=== PATIENT | male | born 1995 | race Caucasian/White ===

== ENCOUNTER 2018-02-05 17:49 | Emergency (ER) | payer OTHER ==
[~2018-02-05] VITALS: Ht 180.3 cm; Wt 78.2 kg
[2018-02-05 18:17] VITALS: Ht 180.3 cm; Wt 78.2 kg
[2018-02-05] MEDS ORDERED: KETOROLAC TROMETHAMINE 30 MG/ML VIAL IV STA (18:27)
[2018-02-05] MEDS ORDERED: DEXAMETHASONE INJ 10 MG in SYRINGE 0 ML IV STA (18:36)
--- NOTE | 2018-02-05 18:42 | EMERGENCY ROOM VISIT NOTE ---
History Report prepared by eJannette: Mina Bowie Under the Supervision of: Dr. Rupert Mae M.D. First contact with patient: 18:21 Chief Complaint: THROAT PAIN/INJURY Stated Complaint: TONSIL ABSCESS History of Present Illness The patient is a 22 year old male who presents to the Emergency Room after seeing [facility] with complaints of difficulty swallowing that he began to experience Octaviano, 6 days ago. The patient states the [facility] diagnosed him with a peritonsillar abscess. They did not do any imaging or administer any medications. His pain is worsened with eating. He does not complain of any breathing difficulties at this time. 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 A total of 10 systems reviewed and were otherwise negative. Past Medical & Surgical No pertinent history stated. Family History Patient reports no known family medical history. Social History Smoking Status: Never Smoker Drug Use: none Marital Status: single Housing Status: lives with roommate Occupation Status: employed, [employer] student Current/Historical Medications Scheduled Amoxicillin & Pot Clavulanate (Augmentin 875-125 mg), 1 TAB PO BID Prednisone (Prednisone Tab), 0 PO DAILY Scheduled PRN Ibuprofen Tab (Advil), 200 MG PO TID PRN for Pain or Fever Naproxen (Aleve), 220 MG PO BID PRN for Pain or Fever Allergies Coded Allergies: No Known Allergies (Unverified , 02/05/18) Physical Exam Vital Signs Date Time Temp Pulse Resp B/P (MAP) Pulse Ox O2 Delivery O2 Flow Rate FiO2 02/05/18 20:03 38.3 99 16 124/69 97 02/05/18 19:46 38.3 96 18 124/68 98 Room Air 02/05/18 19:02 99 22 142/80 99 Room Air 02/05/18 18:41 100 02/05/18 18:20 Room Air 02/05/18 18:17 38.4 100 16 146/77 97 Room Air Physical Exam GENERAL: Awake, alert, well-appearing, in no acute distress HENT: Normocephalic, atraumatic. Oropharynx unremarkable. The patient is able to swallow his own saliva. He has no fullness, and his voice sounds normal. There is hypertrophy of the right tonsil on exam. There is no evidence of Jevon 's Angina on exam. EYES: Normal conjunctiva. Sclera non-icteric. NECK: Supple. No nuchal rigidity. FROM. No JVD. RESPIRATORY: Clear to auscultation. CARDIAC: Regular rate, normal rhythm. Extremities warm and well perfused. Pulses equal. ABDOMEN: Soft, non-distended. No tenderness to palpation. No rebound or guarding. No masses. RECTAL: Deferred. MUSCULOSKELETAL: Chest examination reveals no tenderness. The back is symmetrical on inspection without obvious abnormality. There is no CVA tenderness to palpation. No joint edema. LOWER EXTREMITIES: Calves are equal size bilaterally and non-tender. No edema. No discoloration. NEURO: Normal sensorium. No sensory or motor deficits noted. SKIN: No rash or jaundice noted. Medical Decision & Procedures Laboratory Results 02/05/18 18:50 Red Blood Count 4.62, Mean Corpuscular Volume 91.3, Mean Corpuscular Hemoglobin 31.8, Mean Corpuscular Hemoglobin Concent 34.8, Mean Platelet Volume 9.6, Neutrophils (%) (Auto) 77.1, Lymphocytes (%) (Auto) 10.9, Monocytes (%) (Auto) 10.8, Eosinophils (%) (Auto) 0.8, Basophils (%) (Auto) 0.1, Neutrophils # (Auto ) 11.76, Lymphocytes # (Auto) 1.66, Monocytes # (Auto) 1.64, Eosinophils # (Auto ) 0.12, Basophils # (Auto) 0.01 02/05/18 18:50 Test 02/05/18 18:50 White Blood Count 15.24 K/uL (4.8-10.8) Red Blood Count 4.62 M/uL (4.7-6.1) Hemoglobin 14.7 g/dL (14.0-18.0) Hematocrit 42.2 % (42-52) Mean Corpuscular Volume 91.3 fL (80-100) Mean Corpuscular Hemoglobin 31.8 pg (25-34) Mean Corpuscular Hemoglobin Concent 34.8 g/dl (32-36) Platelet Count 332 K/uL (130-400) Mean Platelet Volume 9.6 fL (7.4-10.4) Neutrophils (%) (Auto) 77.1 % Lymphocytes (%) (Auto) 10.9 % Monocytes (%) (Auto) 10.8 % Eosinophils (%) (Auto) 0.8 % Basophils (%) (Auto) 0.1 % Neutrophils # (Auto) 11.76 K/uL (1.4-6.5) Lymphocytes # (Auto) 1.66 K/uL (1.2-3.4) Monocytes # (Auto) 1.64 K/uL (0.11-0.59) Eosinophils # (Auto) 0.12 K/uL (0-0.5) Basophils # (Auto) 0.01 K/uL (0-0.2) RDW Standard Deviation 39.9 fL (36.4-46.3) RDW Coefficient of Variation 11.9 % (11.5-14.5) Immature Granulocyte % (Auto) 0.3 % Immature Granulocyte # (Auto) 0.05 K/uL (0.00-0.02) Anion Gap 8.0 mmol/L (3-11) Est Creatinine Clear Calc Drug Dose 145.9 ml/min Estimated GFR () 144.7 Estimated GFR (Non- 124.8 BUN/Creatinine Ratio 14.4 (10-20) Calcium Level 9.0 mg/dl (8.5-10.1) Labs reviewed by ED physician. Medications Administered Medications (Trade) Dose Ordered Sig/Gerda Route Start Time Stop Time Status Last Admin Dose Admin Ketorolac Tromethamine (Toradol Inj) 30 mg NOW STAT IV 02/05/18 18:27 02/05/18 18:28 DC 02/05/18 18:57 30 MG Amoxicillin/ Clavulanate Potassium (Augmentin Tab) 875 mg ONE ONCE PO 02/05/18 18:45 02/05/18 18:46 DC 02/05/18 18:55 875 MG Dexamethasone Sodium Phosphate (Dexamethasone Inj Pf) 10 mg STK-MED ONCE .ROUTE 02/05/18 18:43 02/05/18 18:44 DC 02/05/18 18:56 10 MG Acetaminophen (Tylenol Tab) 1,000 mg NOW STAT PO 02/05/18 19:48 02/05/18 19:49 DC 02/05/18 19:56 1,000 MG ED Course 1822: Past medical records reviewed. The patient was evaluated in room B3. A complete history and physical examination was performed. 1826: Ordered Toradol 30 mg IV. 1835: Ordered Dexamethasone Sodium Phosphate 2.5 mL @ 1 mL/min IV. 1830: I discussed the case with Dr. Carlota MENDENHALL. He states that he will see the patient in the office first thing tomorrow morning. 1844: Ordered Amoxicillin/Clavulanate 875 mg PO. 1947: Ordered Acetaminophen 1000 mg PO. 1951: Upon reexamination the patient is resting in bed. I discussed results and treatment plan with the patient. He verbalizes agreement and understanding. The patient is ready for discharge. He will follow with ENT immediately tomorrow. Medical Decision This is a 22-year-old male who was sent in by his primary care physician for an ear nose and throat consult overconcerns he has a peritonsillar abscess. The right tonsil appears to be enlarged however I do not see any evidence of abscess on examination. In addition the patient is able to swallow his own saliva. He is febrile here in the emergency department. I did discuss the case with the ear nose and throat doctor correction lieutenant. I will noted the patient was able swallow Augmentin. They felt that the patient could be safely discharged home for follow-up in the office in the morning at 8 AM. The patient was given Decadron as well as Toradol and Tylenol. Repeat examination revealed improvement in the patient's symptoms. Based on these findings I felt that the patient can be discharged. Medication Reconcilliation Current Medication List: was personally reviewed by me Blood Pressure Screening Patient's blood pressure: Elevated blood pressure Blood pressure disposition: Elevated BP felt to be situational Consults Time Called: 1825 Consulting Physician: Dr. Carlota MENDENHALL Returned Call: 1830 I discussed the case with Dr. Carlota MENDENHALL. He states that he will see the patient in the office first thing tomorrow morning. Impression Primary Impression: Tonsillar hypertrophy, unilateral Scribe Attestation The scribe's documentation has been prepared under my direction and personally reviewed by me in its entirety. I confirm that the note above accurately reflects all work, treatment, procedures, and medical decision making performed by me. Departure Information Dispostion Home / Self-Care Prescriptions Prednisone (Prednisone Tab) 20 Mg Tab 0 PO DAILY, #7 TAB 2 TABS DAILY FOR 2 DAYS, THEN 1 TAB DAILY FOR 2 DAYS, THEN 1/2 TAB DAILY FOR 2 DAYS. Prov: Rupert Mae MD 02/05/18 Amoxicillin & Pot Clavulanate (Augmentin 875-125 mg) 1 Tab Tab 1 TAB PO BID for 10 Days, #20 TAB Prov: Rupert Mae MD 02/05/18 Referrals No Doctor, Assigned (PCP) Forms HOME CARE DOCUMENTATION FORM, IMPORTANT VISIT INFORMATION, WORK / SCHOOL INSTRUCTIONS Patient Instructions My [facility] Additional Instructions Follow up with Dr Van's office tomorrow morning 0800 AM NPO after midnight tonight You have been examined and treated today on an emergency basis only. This is not a substitute for, or an effort to provide, complete comprehensive medical care. It is impossible to recognize and treat all injuries or illnesses in a single emergency department visit. It is therefore important that you follow up closely with [facility]. Call as soon as possible for an appointment. Thank you for your time and consideration. I look forward to speaking with you again soon. Please don't hesitate to call us if you have any questions.
[2018-02-05] MEDS ORDERED: DEXAMETHASONE **PF** INJ 10 MG/ML VIAL ONE (18:43)
[2018-02-05] MEDS ORDERED: AMOXICILLIN/CLAVULANATE TAB 875 MG TAB PO ONE (18:45)
[2018-02-05] MEDS ORDERED: NAPR1TAB9 PO (19:42)
[2018-02-05] MEDS ORDERED: IBUP-103 PO (19:43)
[2018-02-05 19:44] LABS: BASO % 0.1 %; BASO ABS # 0.01 K/uL (0-0.2); EOS % 0.8 %; EOS ABS # 0.12 K/uL (0-0.5); HEMATOCRIT 42.2 % (42-52); HEMOGLOBIN 14.7 g/dL (14.0-18.0); IG# 0.05 K/uL (0.00-0.02); LYMPH % 10.9 %; LYMPH ABS # 1.66 K/uL (1.2-3.4); MEAN CELL VOLUME 91.3 fL (80-100); MEAN CORPUSCULAR HEMOGLOBIN 31.8 pg (25-34); MEAN CORPUSCULAR HGB CONC 34.8 g/dl (32-36); MEAN PLATELET VOLUME 9.6 fL (7.4-10.4); MONO % 10.8 %; MONO ABS # 1.64 K/uL (0.11-0.59); NEUT % 77.1 %; NEUT ABS # 11.76 K/uL (1.4-6.5); PLATELET COUNT 332 K/uL (130-400); RED CELL DISTRIBUTION WIDTH CV 11.9 % (11.5-14.5); RED CELL DISTRIBUTION WIDTH SD 39.9 fL (36.4-46.3); WHITE BLOOD COUNT 15.24 K/uL (4.8-10.8)
[2018-02-05] MEDS ORDERED: PRED20TA2 PO (19:44)
[2018-02-05] MEDS ORDERED: AMOX875T PO (19:44)
[2018-02-05] MEDS ORDERED: ACETAMINOPHEN 500 MG TAB PO STA (19:48)
[2018-02-05 20:03] VITALS: BP 124/69; PULSE 99; TEMP 38.3; O2SAT 97
[2018-02-05 20:08] LABS: CREATININE 0.86 mg/dl (0.60-1.40); POTASSIUM 3.7 mmol/L (3.5-5.1)
== END 2018-02-05 20:00 | disposition home or self-care (01) ==
LOC: C.EDB 17:50
DX: J35.1 Hypertrophy of tonsils (principal); R50.9 Fever, unspecified; R03.0 Elevated blood-pressure reading, without diagnosis of hypertension

== ENCOUNTER 2018-02-17 13:44 | Observation (INO) | payer OTHER ==
[~2018-02-17] VITALS: Ht 180.3 cm; Wt 75.6 kg
[~2018-02-17 13:44] MED LIST: IBUP-103 PO; NAPR1TAB9 PO; PRED20TA2 PO
[2018-02-17 15:42] VITALS: BP 130/76; PULSE 73; TEMP 37.1; O2SAT 97
[2018-02-17] MEDS ORDERED: ACETAMINOPHEN 325 MG TAB PO PRN (15:45)
[2018-02-17] MEDS ORDERED: ONDANSETRON INJ 2 MG/ML 2 ML VIAL IV PRN (15:45)
[2018-02-17 15:47] VITALS: BP 130/76; PULSE 73; TEMP 37.1; O2SAT 97; Ht 180.3 cm; Wt 75.6 kg
[2018-02-17] MEDS ORDERED: CONSULT PHARMACY STA (16:02)
--- NOTE | 2018-02-17 16:02 | History and Physical ---
History & Physical Date & Time of Service: Feb 17, 2018 at 16:02 Chief Complaint: Cervical Adenitis Primary Care Physician: [facility] History of Present Illness Source: patient Patient is a 22 yr male no significant past medical history was a direct admit on referral from his ENT surgeon for neck abscess and need for IV antibiotics. Patient reports he was diagnosed to have tonsillitis 10 days ago when he was prescribed Augmentin and Prednisone course for 10 days which he completed. Patient was revaluated by today at his office and was found to have persistent right sided cervical adenopathy associated with right sided neck abscess. Patient underwent US guided drainage of the abscess and was sent to [facility] for further management. He reports neck pain 4-5/10, sharp, non radiating which increases with movement. Denies any history of dysphagia, odynophagia, fever, chills, nausea, chest pain, SOB, dizziness, abd pain or any other relevant history. Past Medical/Surgical History Medical Problems: (1) Abscess, neck (2) Tonsillar hypertrophy, unilateral Surgical History: Mucocele surgery Family History Patient reports no known family medical history. Reviewed. 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 A total of 10 systems reviewed and were otherwise negative. Physical Exam Vital Signs Date Time Temp Pulse Resp B/P (MAP) Pulse Ox O2 Delivery O2 Flow Rate FiO2 02/17/18 15:42 37.1 73 18 130/76 (94) 97 Room Air General Appearance: WD/WN, no apparent distress Head: normocephalic, atraumatic Eyes: normal inspection, PERRL, EOMI, sclerae normal ENT: normal ENT inspection, hearing grossly normal Neck: supple, + pertinent finding (Right neck swelling, tender, no erythema, Drainage site in bandage) Respiratory/Chest: chest non-tender, lungs clear, normal breath sounds, no respiratory distress, no accessory muscle use Cardiovascular: regular rate, rhythm, no edema, no murmur Abdomen/GI: normal bowel sounds, non tender, soft Back: normal inspection Extremities/Musculoskelatal: normal inspection, no pedal edema 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 as 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, no motor/sensory deficits, alert, normal mood/affect, oriented x 3 Skin: normal color, warm/dry Lymphatic: + cervical node abnormality Impression Assessment and Plan Right Neck abscess H/O Pharyngotonsillitis and completion of PO Augmentin 10 day course recently Persistent right sided cervical adenopathy S/P US guided drainage of the abscess POD # 0 Start IV fluids, Zosyn Consulted ID as per 's request Also consulted ENT Blood cultures ordered Check CBC, BMP, Lactate DVT Px: SCDs encourage to ambulate Code Status: Full Code Disposition: Expect to discharge home when stable Resuscitation Status VTE Prophylaxis Will order VTE Prophylaxis: Yes Reason for no VTE drug order: Treatment not indicated
[2018-02-17] MEDS ORDERED: SODIUM CHLORIDE 0.9% 1000ML 1,000 ML IV ONE (16:15)
[2018-02-17] MEDS ORDERED: PIPERACILL/TAZOBAC IV 3.375 GM in DEXTROSE 5% 100ML IV ONE (16:15)
[2018-02-17] MEDS ORDERED: PATIENT'S HEIGHT AND/OR WEIGHT NEEDED SCH (16:15)
[2018-02-17] MEDS ORDERED: PIPERACILL/TAZOBAC CONSULT ACTIVE PRN (16:15)
[2018-02-17] MEDS ORDERED: OXYCODONE/ACETAMINOPHEN 5-325 TAB PO PRN (16:15)
[2018-02-17 17:50] LABS: BASO % 0.1 %; BASO ABS # 0.02 K/uL (0-0.2); EOS % 0.8 %; EOS ABS # 0.13 K/uL (0-0.5); HEMATOCRIT 43.9 % (42-52); HEMOGLOBIN 15.7 g/dL (14.0-18.0); IG# 0.05 K/uL (0.00-0.02); LYMPH % 11.4 %; MEAN CORPUSCULAR HEMOGLOBIN 32.2 pg (25-34); MEAN CORPUSCULAR HGB CONC 35.8 g/dl (32-36); MEAN PLATELET VOLUME 8.8 fL (7.4-10.4); MONO % 6.1 %; MONO ABS # 1.01 K/uL (0.11-0.59); NEUT % 81.3 %; NEUT ABS # 13.52 K/uL (1.4-6.5); PLATELET COUNT 337 K/uL (130-400); RED CELL DISTRIBUTION WIDTH CV 11.9 % (11.5-14.5); RED CELL DISTRIBUTION WIDTH SD 38.7 fL (36.4-46.3); WHITE BLOOD COUNT 16.63 K/uL (4.8-10.8)
[2018-02-17 18:08] LABS: BLOOD UREA NITROGEN 10 mg/dl (7-18); CALCIUM 9.1 mg/dl (8.5-10.1); CARBON DIOXIDE 28 mmol/L (21-32); CREATININE 0.78 mg/dl (0.60-1.40); GLUCOSE 88 mg/dl (70-99); POTASSIUM 3.6 mmol/L (3.5-5.1); SODIUM 136 mmol/L (136-145)
[2018-02-17] MEDS ORDERED: IV FLUIDS COMPLETED PRN (18:15)
[2018-02-17] MEDS: PIPERACILL/TAZOBAC IV 3.375 GM in DEXTROSE 5% 100ML IV SCH (21:56)
[2018-02-17 23:14] VITALS: BP 130/66; PULSE 72; TEMP 37; O2SAT 98
[2018-02-18] MEDS: PIPERACILL/TAZOBAC IV 3.375 GM in DEXTROSE 5% 100ML IV SCH (05:46)
[2018-02-18 06:30] VITALS: BP 133/78; PULSE 68; TEMP 36.8; O2SAT 100
--- NOTE | 2018-02-18 06:36 | Progress Note ---
Internal Med Progress Note Date of Service: Feb 18, 2018. Provider Documentation: Made aware by RN of chest tightness, shortness of breath 30 minutes into Zosyn infusion. No rash, VS WNL as per RN. Prompt improvement of symptoms after Zosyn infusion stopped as per patient. R neck swelling little better as per patient. AP ? Zosyn ADR Hold Zosyn for now. IV Clindamycin, Azactam in place of Zosyn. (note of GNR of initial outpatient abscess Gram stain results) Will relay to AM provider. Vital Signs: Date Time Temp Pulse Resp B/P (MAP) Pulse Ox O2 Delivery O2 Flow Rate FiO2 02/18/18 06:30 36.8 68 16 133/78 (96) 100 Room Air 02/18/18 00:00 Room Air 02/17/18 23:14 37.0 72 17 130/66 (87) 98 Room Air 02/17/18 15:47 37.1 73 18 130/76 97 Room Air 02/17/18 15:42 37.1 73 18 130/76 (94) 97 Room Air Lab Results: Results Past 24 Hours Test 02/17/18 17:31 02/18/18 06:32 Range/Units White Blood Count 16.63 4.8-10.8 K/uL Red Blood Count 4.88 4.7-6.1 M/uL Hemoglobin 15.7 14.0-18.0 g/dL Hematocrit 43.9 42-52 % Mean Corpuscular Volume 90.0 80-100 fL Mean Corpuscular Hemoglobin 32.2 25-34 pg Mean Corpuscular Hemoglobin Concent 35.8 32-36 g/dl Platelet Count 337 130-400 K/uL Mean Platelet Volume 8.8 7.4-10.4 fL Neutrophils (%) (Auto) 81.3 % Lymphocytes (%) (Auto) 11.4 % Monocytes (%) (Auto) 6.1 % Eosinophils (%) (Auto) 0.8 % Basophils (%) (Auto) 0.1 % Neutrophils # (Auto) 13.52 1.4-6.5 K/uL Lymphocytes # (Auto) 1.90 1.2-3.4 K/uL Monocytes # (Auto) 1.01 0.11-0.59 K/uL Eosinophils # (Auto) 0.13 0-0.5 K/uL Basophils # (Auto) 0.02 0-0.2 K/uL RDW Standard Deviation 38.7 36.4-46.3 fL RDW Coefficient of Variation 11.9 11.5-14.5 % Immature Granulocyte % (Auto) 0.3 % Immature Granulocyte # (Auto) 0.05 0.00-0.02 K/uL Sodium Level 136 136-145 mmol/L Potassium Level 3.6 3.5-5.1 mmol/L Chloride Level 101 98-107 mmol/L Carbon Dioxide Level 28 21-32 mmol/L Anion Gap 7.0 3-11 mmol/L Blood Urea Nitrogen 10 7-18 mg/dl Creatinine 0.78 0.60-1.40 mg/dl Est Creatinine Clear Calc Drug Dose 160.8 ml/min Estimated GFR () > 150.0 Estimated GFR (Non- 129.9 BUN/Creatinine Ratio 12.1 10-20 Random Glucose 88 70-99 mg/dl Lactic Acid Level 1.2 0.4-2.0 mmol/L Calcium Level 9.1 8.5-10.1 mg/dl Magnesium Level 2.0 1.8-2.4 mg/dl Microbiology Results 02/17/18 Blood Culture, Received Pending 02/17/18 Blood Culture, Received Pending
--- NOTE | 2018-02-18 07:25 | DIAGNOSTIC IMAGING REPORT ---
CHEST ONE VIEW PORTABLE CLINICAL HISTORY: 22 years-old Male presenting with cp. TECHNIQUE: Portable upright AP view of the chest was obtained. COMPARISON: None. FINDINGS: Cardiomediastinal silhouette normal. Lungs and pleural spaces clear. Mild S shape scoliotic curvature of the thoracic spine. Upper abdomen normal. IMPRESSION: 1. No acute cardiopulmonary disease. Electronically signed by: Fredy Cheema M.D. 02/18/2018 7:24 AM Dictated Date/Time: 02/18/2018 7:23 AM
[2018-02-18] MEDS ORDERED: CLINDAMYCIN IV 600 MG in DEXTROSE 5% 50ML 50 ML IV ONE (07:30)
[2018-02-18] MEDS: LACTOBACILLUS ACIDOPHILUS (FLORANEX) TAB PO SCH ×3 (07:48→16:14)
--- NOTE | 2018-02-18 07:59 | Medical Consult ---
Consultation Date of Consultation: Feb 18, 2018. Attending Physician: Guy Burton MD History of Present Illness 22 yo male with right neck abscess s/p US guided aspiration yesterday in my office. Culture sent to [facility] lab, pending at this time. Patient had previous pharyngotonsillitis which resolved with augmentin. Right cervical adenopathy persisted. I obtained CT neck at [facility] yesterday which showed a right sided neck abscess, cervical lymphadenitis. The IJV was compressed on the right side, but no thrombus or dilation of the vein was noted by myself or neuroradiologist. Patient was sent to [facility] for admission to the medicine service for IV abx. He had reaction to zosyn, so he was switched to clindamycin. Patient states he does feel better this am. Obviously still has some pain in the neck but range of motion is improved and he subjectively feels swelling is down. Past Medical/Surgical History Medical Problems: (1) Tonsillar hypertrophy, unilateral Status: Acute Family History Patient reports no known family medical history. Social History Smoking Status: Never Smoker Alcohol Use: socially Drug Use: none Marital Status: single Housing Status: lives with roommate Occupation Status: employed, [employer] student Allergies Coded Allergies: Piperacillin (Verified Adverse Reaction, Intermediate, 0, 02/18/18) cp, sob Tazobactam (Verified Adverse Reaction, Intermediate, 0, 02/18/18) cp, sob Current Inpatient Medications Current Inpatient Medications Medications (Trade) Dose Ordered Sig/Gerda Route Start Time Stop Time Status Last Admin Dose Admin Acetaminophen (Tylenol Tab) 650 mg Q4H PRN PO 02/17/18 15:45 03/19/18 15:44 Ondansetron HCl (Zofran Inj) 4 mg Q6H PRN IV 02/17/18 15:45 03/19/18 15:44 Miscellaneous Information (Consult) 1 ea UD PRN N/A 02/17/18 16:15 03/19/18 16:14 Future Hold Piperacillin Sod/ Tazobactam Sod 3.375 gm/Dextrose 115 ml @ 28.75 mls/ hr Q8H IV 02/17/18 22:00 02/27/18 21:59 Future Hold 02/18/18 05:46 28.75 MLS/HR Oxycodone/ Acetaminophen (Percocet 5-325mg Tab) 1 tab Q8H PRN PO 02/17/18 16:15 03/03/18 16:14 Miscellaneous (Iv Fluids Completed) 1 ea PRN PRN N/A 02/17/18 18:15 02/17/19 18:14 02/18/18 05:46 1 EA Clindamycin Phosphate 600 mg/ Dextrose 54 ml @ 100 mls/hr TODAY@0730 ONCE IV 02/18/18 07:30 02/18/18 08:02 02/18/18 07:48 100 MLS/HR Clindamycin Phosphate (Consult) 1 ea DAILY PRN N/A 02/18/18 08:00 03/20/18 07:59 Lactobacillus Acidophilus (Floranex Tab) 4 tab TIDM PO 02/18/18 08:00 03/20/18 07:59 02/18/18 07:48 4 TAB Review of Systems Constitutional: No fever, No chills, No sweats, No weight loss, No weakness, No fatigue, No problem reported Eyes: No worsening of vision, No eye pain, No redness, No discharge, No diplopia, No problem reported ENT: + problem reported (see HPI) Respiratory: No cough, No sputum, No wheezing, No shortness of breath, No dyspnea on exertion, No dyspnea at rest, No hemoptysis, No problem reported Cardiovascular: No chest pain, No orthopnea, No PND, No edema, No claudication , No palpitations, No problem reported Abdomen: No pain, No nausea, No vomiting, No diarrhea, No constipation, No GI bleeding, No problem reported Allergic / Immunologic: No environmental allergies, No seasonal allergies, No pet sensitivities, No food allergies, No hives, No frequent infections, No poor healing, No prolonged convalescence, No problem reported Physical Exam Date Time Temp Pulse Resp B/P (MAP) Pulse Ox O2 Delivery O2 Flow Rate FiO2 02/18/18 06:30 36.8 68 16 133/78 (96) 100 Room Air 02/18/18 00:00 Room Air 02/17/18 23:14 37.0 72 17 130/66 (87) 98 Room Air 02/17/18 15:47 37.1 73 18 130/76 97 Room Air 3/27/18 15:42 37.1 73 18 130/76 (94) 97 Room Air General Appearance: WD/WN, no apparent distress Head: normocephalic, atraumatic Eyes: normal inspection, PERRL, EOMI ENT: pharynx normal Neck: + pertinent finding (Edema improved. Able to see the angle of his mandible this am, could not yesteday. right level II and III adenopathy persists. Range of motion of the neck is improved on exam this am) Respiratory/Chest: no respiratory distress, no accessory muscle use Cardiovascular: no edema, no JVD Lymphatic: + cervical node abnormality Laboratory Results Last 24 Hours Test 02/17/18 17:31 02/18/18 06:32 White Blood Count 16.63 K/uL Red Blood Count 4.88 M/uL Hemoglobin 15.7 g/dL Hematocrit 43.9 % Mean Corpuscular Volume 90.0 fL Mean Corpuscular Hemoglobin 32.2 pg Mean Corpuscular Hemoglobin Concent 35.8 g/dl Platelet Count 337 K/uL Mean Platelet Volume 8.8 fL Neutrophils (%) (Auto) 81.3 % Lymphocytes (%) (Auto) 11.4 % Monocytes (%) (Auto) 6.1 % Eosinophils (%) (Auto) 0.8 % Basophils (%) (Auto) 0.1 % Neutrophils # (Auto) 13.52 K/uL Lymphocytes # (Auto) 1.90 K/uL Monocytes # (Auto) 1.01 K/uL Eosinophils # (Auto) 0.13 K/uL Basophils # (Auto) 0.02 K/uL RDW Standard Deviation 38.7 fL RDW Coefficient of Variation 11.9 % Immature Granulocyte % (Auto) 0.3 % Immature Granulocyte # (Auto) 0.05 K/uL Sodium Level 136 mmol/L Potassium Level 3.6 mmol/L Chloride Level 101 mmol/L Carbon Dioxide Level 28 mmol/L Anion Gap 7.0 mmol/L Blood Urea Nitrogen 10 mg/dl Creatinine 0.78 mg/dl Est Creatinine Clear Calc Drug Dose 160.8 ml/min Estimated GFR () > 150.0 Estimated GFR (Non- 129.9 BUN/Creatinine Ratio 12.1 Random Glucose 88 mg/dl Lactic Acid Level 1.2 mmol/L Calcium Level 9.1 mg/dl Magnesium Level 2.0 mg/dl Assessment & Plan 22 yo male with right sided cervical lymphadenitis and neck abscess s/p US guided drainage yesterday in my office - afebrile overnight. clinically and subjectively better this am. Edema is improved ( able to see the angle of the mandible this am, could not yesterday ) . - on clinda as had reaction to zosyn - recommend ID consultation - recommend continuation of IV abx at this point. - would make NPO at midnight each night in case he regresses and would need formal trip to OR for repeat drainage. - will follow culture at [facility]
[2018-02-18 08:00] VITALS: O2SAT 100
[2018-02-18] MEDS ORDERED: AZTREONAM IV 2,000 MG in DEXTROSE 5% 100ML 100 ML IV ONE (08:00)
[2018-02-18] MEDS ORDERED: CLINDAMYCIN CONSULT ACTIVE PRN (08:00)
[2018-02-18 09:13] LABS: BASO % 0.1 %; BASO ABS # 0.02 K/uL (0-0.2); EOS % 1.6 %; EOS ABS # 0.22 K/uL (0-0.5); HEMATOCRIT 40.1 % (42-52); HEMOGLOBIN 14.2 g/dL (14.0-18.0); IG# 0.04 K/uL (0.00-0.02); LYMPH % 16.9 %; LYMPH ABS # 2.37 K/uL (1.2-3.4); MEAN CELL VOLUME 89.9 fL (80-100); MEAN CORPUSCULAR HEMOGLOBIN 31.8 pg (25-34); MEAN CORPUSCULAR HGB CONC 35.4 g/dl (32-36); MEAN PLATELET VOLUME 9.1 fL (7.4-10.4); MONO % 8.3 %; MONO ABS # 1.17 K/uL (0.11-0.59); NEUT % 72.8 %; PLATELET COUNT 322 K/uL (130-400); RED CELL DISTRIBUTION WIDTH CV 11.9 % (11.5-14.5); RED CELL DISTRIBUTION WIDTH SD 38.6 fL (36.4-46.3); WHITE BLOOD COUNT 14.02 K/uL (4.8-10.8)
[2018-02-18 09:20] LABS: PTT PATIENT 42.3 SECONDS (21.0-31.0)
[2018-02-18] MEDS ORDERED: AZTREONAM CONSULT ACTIVE PRN (09:30)
[2018-02-18 09:45] LABS: ALBUMIN 3.4 gm/dl (3.4-5.0); ALT/SGPT 16 U/L (12-78); BLOOD UREA NITROGEN 9 mg/dl (7-18); CALCIUM 8.9 mg/dl (8.5-10.1); CARBON DIOXIDE 28 mmol/L (21-32); CREATININE 0.86 mg/dl (0.60-1.40); GLUCOSE 86 mg/dl (70-99); LIPASE 72 U/L (73-393); POTASSIUM 3.7 mmol/L (3.5-5.1); SODIUM 137 mmol/L (136-145)
[2018-02-18 09:50] LABS: ALKALINE PHOSPHATASE 64 U/L (45-117); AST/SGOT 11 U/L (15-37); TOTAL PROTEIN 7.5 gm/dl (6.4-8.2)
[2018-02-18] MEDS: AZTREONAM IV 1,000 MG in DEXTROSE 5% 100ML IV SCH ×2 (10:16→22:52)
--- NOTE | 2018-02-18 11:20 | Progress Note ---
Progress Note Date of Service Feb 18, 2018. Progress Note ID Consult Dictated #[id number] A/P: 1. Neck Abscess 2. Leukocytosis -Continue abx, follow culture results -will follow, thank you
--- NOTE | 2018-02-18 11:49 | INFECT. DISEASE CONSULTATION ---
DATE OF CONSULTATION: 02/18/2018 HISTORY OF PRESENT ILLNESS: This is a 22-year-old gentleman who was admitted from the ENT office yesterday after he was found to have a right neck abscess. He did undergo an aspiration of this in the office yesterday and cultures are pending via the [facility] system. He states that 10 days ago, he did have a sore throat and swelling. He was treated with Augmentin for tonsillitis, but states a rapid strep was negative. It is unclear to me if a throat culture was done at that time; however, he felt he responded well to the Augmentin with regards to his sore throat; however, his right neck swelling remained. He had a followup with ENT yesterday and because of his persistent swelling, he states an ultrasound was done in the office that showed an abscess and an aspiration was performed. He was then sent to the hospital for direct admission and started on clindamycin and aztreonam. His white blood cell count was 16.6, but he is also receiving prednisone prior to admission. Blood cultures were ordered and are pending. His wound culture is pending as well. A chest x-ray was done in the ER and is negative. On my examination, the patient states that today, he is feeling better. His pain is improved. He denies any fevers or chills. His mother is present on my exam. He is able to eat and swallow. He has no shortness of breath or wheezing. He denies any cough. He denies any sick contacts. He tolerated Augmentin without difficulty. His remaining review of systems is unremarkable. PAST MEDICAL HISTORY: He has a history of unilateral tonsillar hypertrophy. PAST SURGICAL HISTORY: Significant for mucocele. FAMILY HISTORY: Noncontributory. SOCIAL HISTORY: Negative for tobacco use. He denies any drug use. He is a student at [employer]. He does drink alcohol. ALLERGIES: Unremarkable. CURRENT MEDICATIONS: Include clindamycin, aztreonam, Floranex, Percocet, Tylenol and Zofran. PHYSICAL EXAMINATION: VITAL SIGNS: He is afebrile, pulse 68, respiratory rate 16, blood pressure 133/78, and oxygen saturation is 100% on room air. GENERAL: He is awake, alert and oriented x3. He is in no acute distress. HEENT: Mucous membranes are moist. Extraocular muscles are intact. HEART: Regular. LUNGS: Clear. ABDOMEN: Soft. EXTREMITIES: There is no lower extremity edema. There is right neck swelling, which is firm and tender to palpation. There is no warmth or erythema. There is no purulent drainage noted. LABORATORY STUDIES: CBC today reveals a white blood cell count of 14, hemoglobin 14.2, and platelets 322. Chemistry panel reveals a sodium of 137, potassium 3.7, chloride 102, bicarbonate 20, BUN 9, creatinine 0.8, and glucose is 86. LFTs are within normal limits. Blood cultures are pending. Chest x-ray is negative. ASSESSMENT AND PLAN: 1. Right neck abscess. 2. Leukocytosis. He will remain on empiric antibiotics pending additional culture results. Thank you for this consultation.
[2018-02-18] MEDS: CLINDAMYCIN IV 600 MG in DEXTROSE 5% 50ML 50 ML IV SCH ×2 (16:13→23:52)
[2018-02-18 16:39] VITALS: O2SAT 100
[2018-02-18 16:48] VITALS: BP 116/70; PULSE 70; TEMP 37; O2SAT 98
--- NOTE | 2018-02-18 16:48 | Progress Note ---
Subjective Date of Service: Feb 18, 2018. Subjective Pt evaluation today including: conversation w/ patient, physical exam, lab review, review of studies, review of inpatient medication list Saw/examined the patient in room 460 No problems/issues today the R cervical swelling has improved slightly No chest pain/shortness of breath/palpitations Had some chest pressure with Zosyn last evening Problem List Medical Problems: (1) Tonsillar hypertrophy, unilateral Status: Acute Review of Systems Eyes: No discharge ENT: + see HPI, No nasal symptoms, No sore throat, No tinnitus, No dental problems, No trouble swallowing Respiratory: No cough, No sputum, No shortness of breath Cardiac: No chest pain, No edema, No palpitations Abdomen: No pain, No nausea, No vomiting, No diarrhea Medications Current Inpatient Medications Medications (Trade) Dose Ordered Sig/Gerda Route Start Time Stop Time Status Last Admin Dose Admin Acetaminophen (Tylenol Tab) 650 mg Q4H PRN PO 02/17/18 15:45 03/19/18 15:44 Ondansetron HCl (Zofran Inj) 4 mg Q6H PRN IV 02/17/18 15:45 03/19/18 15:44 Oxycodone/ Acetaminophen (Percocet 5-325mg Tab) 1 tab Q8H PRN PO 02/17/18 16:15 03/03/18 16:14 Miscellaneous (Iv Fluids Completed) 1 ea PRN PRN N/A 02/17/18 18:15 02/17/19 18:14 02/18/18 05:46 1 EA Clindamycin Phosphate (Consult) 1 ea DAILY PRN N/A 02/18/18 08:00 03/20/18 07:59 Lactobacillus Acidophilus (Floranex Tab) 4 tab TIDM PO 02/18/18 08:00 03/20/18 07:59 02/18/18 16:14 4 TAB Aztreonam (Consult) 1 ea UD PRN N/A 02/18/18 09:30 03/20/18 09:29 Aztreonam 1000 mg/ Dextrose 110 ml @ 110 mls/hr Q8H IV 02/18/18 10:00 02/28/18 09:59 02/18/18 10:16 110 MLS/HR Clindamycin Phosphate 600 mg/ Dextrose 54 ml @ 108 mls/hr Q8H IV 02/18/18 16:00 02/28/18 07:59 02/18/18 16:13 108 MLS/HR Objective Vital Signs Date Time Temp Pulse Resp B/P (MAP) Pulse Ox O2 Delivery O2 Flow Rate FiO2 02/18/18 08:00 100 Room Air 02/18/18 06:30 36.8 68 16 133/78 (96) 100 Room Air 02/18/18 00:00 Room Air 02/17/18 23:14 37.0 72 17 130/66 (87) 98 Room Air Physical Exam General Appearance: no apparent distress Neck: + pertinent finding (swelling of R cervical mandibular region with tenderness to palpation) Respiratory/Chest: lungs clear, normal breath sounds, no respiratory distress, no accessory muscle use Laboratory Results Last 24 Hours Test 02/17/18 17:31 02/18/18 08:19 White Blood Count 16.63 K/uL 14.02 K/uL Red Blood Count 4.88 M/uL 4.46 M/uL Hemoglobin 15.7 g/dL 14.2 g/dL Hematocrit 43.9 % 40.1 % Mean Corpuscular Volume 90.0 fL 89.9 fL Mean Corpuscular Hemoglobin 32.2 pg 31.8 pg Mean Corpuscular Hemoglobin Concent 35.8 g/dl 35.4 g/dl Platelet Count 337 K/uL 322 K/uL Mean Platelet Volume 8.8 fL 9.1 fL Neutrophils (%) (Auto) 81.3 % 72.8 % Lymphocytes (%) (Auto) 11.4 % 16.9 % Monocytes (%) (Auto) 6.1 % 8.3 % Eosinophils (%) (Auto) 0.8 % 1.6 % Basophils (%) (Auto) 0.1 % 0.1 % Neutrophils # (Auto) 13.52 K/uL 10.20 K/uL Lymphocytes # (Auto) 1.90 K/uL 2.37 K/uL Monocytes # (Auto) 1.01 K/uL 1.17 K/uL Eosinophils # (Auto) 0.13 K/uL 0.22 K/uL Basophils # (Auto) 0.02 K/uL 0.02 K/uL RDW Standard Deviation 38.7 fL 38.6 fL RDW Coefficient of Variation 11.9 % 11.9 % Immature Granulocyte % (Auto) 0.3 % 0.3 % Immature Granulocyte # (Auto) 0.05 K/uL 0.04 K/uL Sodium Level 136 mmol/L 137 mmol/L Potassium Level 3.6 mmol/L 3.7 mmol/L Chloride Level 101 mmol/L 102 mmol/L Carbon Dioxide Level 28 mmol/L 28 mmol/L Anion Gap 7.0 mmol/L 7.0 mmol/L Blood Urea Nitrogen 10 mg/dl 9 mg/dl Creatinine 0.78 mg/dl 0.86 mg/dl Est Creatinine Clear Calc Drug Dose 160.8 ml/min 145.9 ml/min Estimated GFR () > 150.0 144.7 Estimated GFR (Non- 129.9 124.8 BUN/Creatinine Ratio 12.1 10.8 Random Glucose 88 mg/dl 86 mg/dl Lactic Acid Level 1.2 mmol/L Calcium Level 9.1 mg/dl 8.9 mg/dl Magnesium Level 2.0 mg/dl 1.8 mg/dl Activated Partial Thromboplast Time 42.3 SECONDS Partial Thromboplastin Ratio 1.6 Total Bilirubin 1.1 mg/dl Aspartate Amino Transf (AST/SGOT) 11 U/L Alanine Aminotransferase (ALT/SGPT) 16 U/L Alkaline Phosphatase 64 U/L Troponin I < 0.015 ng/ml Total Protein 7.5 gm/dl Albumin 3.4 gm/dl Globulin 4.1 gm/dl Albumin/Globulin Ratio 0.8 Lipase 72 U/L Assessment and Plan This is a 22 year old male with recent history of tonsillitis - found to have cervical adenopathy and abscess R Peritonsillar Abscess and Reactive Lymphadenopathy - initial gram stain as outpatient growing gram negative rods - final culture is pending - currently on Clinda and Aztreonam - white count improving - await final cultures and adjust abx. accordingly - NPO after midnight in case the abscess needs to be drained
[2018-02-18 23:59] VITALS: BP 128/65; PULSE 59; TEMP 36.8; O2SAT 98
[2018-02-19] MEDS: AZTREONAM IV 1,000 MG in DEXTROSE 5% 100ML IV SCH ×2 (01:32→09:15)
--- NOTE | 2018-02-19 06:56 | Ears,Nose,Throat Progress Note ---
Progress Note Date of Service Feb 19, 2018. Subjective Pt evaluation today including: conversation w/ patient, physical exam, chart review, lab review No issues overnight. Gram stain at [facility] grew gram negative rods. Doing better again today per patient report. Objective Vital Signs Date Time Temp Pulse Resp B/P (MAP) Pulse Ox O2 Delivery O2 Flow Rate FiO2 02/18/18 23:59 36.8 59 14 128/65 (86) 98 Room Air 02/18/18 23:57 Room Air 02/18/18 16:48 37.0 70 16 116/70 (85) 98 Room Air 02/18/18 16:39 100 Room Air 02/18/18 08:00 100 Room Air Physical Exam General Appearance: WD/WN, no apparent distress Neck: + pertinent finding (Marked decrease edema of the right neck. Improved range of motion of the neck again today. ) Laboratory Results Last 24 Hours Test 02/18/18 08:19 02/19/18 04:44 White Blood Count 14.02 K/uL Red Blood Count 4.46 M/uL Hemoglobin 14.2 g/dL Hematocrit 40.1 % Mean Corpuscular Volume 89.9 fL Mean Corpuscular Hemoglobin 31.8 pg Mean Corpuscular Hemoglobin Concent 35.4 g/dl Platelet Count 322 K/uL Mean Platelet Volume 9.1 fL Neutrophils (%) (Auto) 72.8 % Lymphocytes (%) (Auto) 16.9 % Monocytes (%) (Auto) 8.3 % Eosinophils (%) (Auto) 1.6 % Basophils (%) (Auto) 0.1 % Neutrophils # (Auto) 10.20 K/uL Lymphocytes # (Auto) 2.37 K/uL Monocytes # (Auto) 1.17 K/uL Eosinophils # (Auto) 0.22 K/uL Basophils # (Auto) 0.02 K/uL RDW Standard Deviation 38.6 fL RDW Coefficient of Variation 11.9 % Immature Granulocyte % (Auto) 0.3 % Immature Granulocyte # (Auto) 0.04 K/uL Activated Partial Thromboplast Time 42.3 SECONDS Partial Thromboplastin Ratio 1.6 Sodium Level 137 mmol/L Potassium Level 3.7 mmol/L Chloride Level 102 mmol/L Carbon Dioxide Level 28 mmol/L Anion Gap 7.0 mmol/L Blood Urea Nitrogen 9 mg/dl Creatinine 0.86 mg/dl Est Creatinine Clear Calc Drug Dose 145.9 ml/min Estimated GFR () 144.7 Estimated GFR (Non- 124.8 BUN/Creatinine Ratio 10.8 Random Glucose 86 mg/dl Calcium Level 8.9 mg/dl Magnesium Level 1.8 mg/dl Total Bilirubin 1.1 mg/dl Aspartate Amino Transf (AST/SGOT) 11 U/L Alanine Aminotransferase (ALT/SGPT) 16 U/L Alkaline Phosphatase 64 U/L Troponin I < 0.015 ng/ml Total Protein 7.5 gm/dl Albumin 3.4 gm/dl Globulin 4.1 gm/dl Albumin/Globulin Ratio 0.8 Lipase 72 U/L Assessment and Plan 22 yo male with right sided cervical lymphadenitis and neck abscess s/p US guided drainage Friday in my office - patient right neck edema/adenopathy markedly improved this am - afebrile again overnight - white count improved - ok for discharge from ENT standpoint if medicine and ID services feel there is an adequate PO antibiotic to discharge home on - he will follow up in my office next week
[2018-02-19 07:39] VITALS: BP 125/75; PULSE 54; TEMP 36.7; O2SAT 100
[2018-02-19 07:47] LABS: HEMATOCRIT 41.2 % (42-52); HEMOGLOBIN 14.7 g/dL (14.0-18.0); MEAN CELL VOLUME 89.6 fL (80-100); MEAN CORPUSCULAR HGB CONC 35.7 g/dl (32-36); MEAN PLATELET VOLUME 9.1 fL (7.4-10.4); PLATELET COUNT 294 K/uL (130-400); RED CELL DISTRIBUTION WIDTH CV 11.9 % (11.5-14.5); RED CELL DISTRIBUTION WIDTH SD 38.3 fL (36.4-46.3); WHITE BLOOD COUNT 8.31 K/uL (4.8-10.8)
[2018-02-19 08:00] VITALS: O2SAT 100
[2018-02-19] MEDS: LACTOBACILLUS ACIDOPHILUS (FLORANEX) TAB PO SCH ×2 (08:44→11:35)
[2018-02-19] MEDS: CLINDAMYCIN IV 600 MG in DEXTROSE 5% 50ML 50 ML IV SCH (08:45)
--- NOTE | 2018-02-19 10:17 | Progress Note ---
Subjective Date of Service: Feb 19, 2018. Subjective Patient remains on empiric clindamycin aztreonam. He has been afebrile since admission to hospital. He appears to be tolerating antibiotics well. I did review ENT note from this morning. There is no indication for surgery at this time. He is cleared for discharge on oral antibiotics per ENT. Cultures were sent from the office to [facility] and reportedly have gram-negative oliver on Gram stain but I am not aware that the culture is positive in any final identification and sensitivity has been done as of yet. His blood cultures here are negative. He is afebrile. He does not have a leukocytosis. There is no repeat imaging. Problem List Medical Problems: (1) Tonsillar hypertrophy, unilateral Status: Acute Objective Vital Signs Date Time Temp Pulse Resp B/P (MAP) Pulse Ox O2 Delivery O2 Flow Rate FiO2 02/19/18 08:00 100 Room Air 02/19/18 07:39 36.7 54 16 125/75 (92) 100 Room Air 02/18/18 23:59 36.8 59 14 128/65 (86) 98 Room Air 02/18/18 23:57 Room Air 02/18/18 16:48 37.0 70 16 116/70 (85) 98 Room Air 02/18/18 16:39 100 Room Air Laboratory Results Item Value Date Time Blood Culture - Preliminary Resulted 02/17/18 1740 Blood NO GROWTH TO DATE. Blood Culture - Preliminary Resulted 02/17/18 1731 Blood NO GROWTH TO DATE. Last 24 Hours Test 02/19/18 07:08 White Blood Count 8.31 K/uL Red Blood Count 4.60 M/uL Hemoglobin 14.7 g/dL Hematocrit 41.2 % Mean Corpuscular Volume 89.6 fL Mean Corpuscular Hemoglobin 32.0 pg Mean Corpuscular Hemoglobin Concent 35.7 g/dl RDW Standard Deviation 38.3 fL RDW Coefficient of Variation 11.9 % Platelet Count 294 K/uL Mean Platelet Volume 9.1 fL Assessment and Plan (1) Abscess, neck Assessment & Plan: Clindamycin will be discontinued he will remain on aztreonam pending additional culture results. I do not access to [facility] if the isolate is Augmentin sensitive certainly he could be placed on a course of Augmentin and I would give no less than 14 days. Other oral options would include Levaquin 500 milligrams daily again for minimal of 14 days. I he will remain on aztreonam pending culture results
[2018-02-19 13:35] VITALS: BP 125/75; PULSE 54; TEMP 36.7; O2SAT 100
--- NOTE | 2018-02-19 13:45 | Progress Note ---
Subjective Date of Service: Feb 19, 2018. Subjective Pt evaluation today including: conversation w/ patient, physical exam, lab review, review of studies, review of inpatient medication list Saw/examined the patient in room 460 He's doing well, tenderness decreased at the R cervical region No fevers/chills swelling slightly decreased as well Problem List Medical Problems: (1) Tonsillar hypertrophy, unilateral Status: Acute Review of Systems Constitutional: No fever, No chills ENT: + problem reported (cervical neck swelling), No sore throat, No trouble swallowing Respiratory: No cough, No shortness of breath Medications Current Inpatient Medications Medications (Trade) Dose Ordered Sig/Gerda Route Start Time Stop Time Status Last Admin Dose Admin Acetaminophen (Tylenol Tab) 650 mg Q4H PRN PO 02/17/18 15:45 03/19/18 15:44 Ondansetron HCl (Zofran Inj) 4 mg Q6H PRN IV 02/17/18 15:45 03/19/18 15:44 Oxycodone/ Acetaminophen (Percocet 5-325mg Tab) 1 tab Q8H PRN PO 02/17/18 16:15 03/03/18 16:14 Miscellaneous (Iv Fluids Completed) 1 ea PRN PRN N/A 02/17/18 18:15 02/17/19 18:14 02/18/18 05:46 1 EA Clindamycin Phosphate (Consult) 1 ea DAILY PRN N/A 02/18/18 08:00 03/20/18 07:59 Lactobacillus Acidophilus (Floranex Tab) 4 tab TIDM PO 02/18/18 08:00 03/20/18 07:59 02/19/18 11:35 4 TAB Aztreonam (Consult) 1 ea UD PRN N/A 02/18/18 09:30 03/20/18 09:29 Aztreonam 1000 mg/ Dextrose 110 ml @ 110 mls/hr Q8H IV 02/18/18 10:00 02/28/18 09:59 02/19/18 09:15 110 MLS/HR Objective Vital Signs Date Time Temp Pulse Resp B/P (MAP) Pulse Ox O2 Delivery O2 Flow Rate FiO2 02/19/18 13:35 36.7 54 16 100 Room Air 02/19/18 08:00 100 Room Air 02/19/18 07:39 36.7 54 16 125/75 (92) 100 Room Air 02/18/18 23:59 36.8 59 14 128/65 (86) 98 Room Air 02/18/18 23:57 Room Air 02/18/18 16:48 37.0 70 16 116/70 (85) 98 Room Air 02/18/18 16:39 100 Room Air Physical Exam General Appearance: no apparent distress ENT: + pertinent finding (no muffled voice, no problems swallowing; R cervical adenopathy; swelling, tenderness is present, but only with signfiicant palpation ) Laboratory Results Last 24 Hours Test 02/19/18 07:08 White Blood Count 8.31 K/uL Red Blood Count 4.60 M/uL Hemoglobin 14.7 g/dL Hematocrit 41.2 % Mean Corpuscular Volume 89.6 fL Mean Corpuscular Hemoglobin 32.0 pg Mean Corpuscular Hemoglobin Concent 35.7 g/dl RDW Standard Deviation 38.3 fL RDW Coefficient of Variation 11.9 % Platelet Count 294 K/uL Mean Platelet Volume 9.1 fL Assessment and Plan This is a 22 year old male with recent history of tonsillitis - found to have cervical adenopathy and abscess R Peritonsillar Abscess and Reactive Lymphadenopathy 02/19 - outpatient cultures with no growth - blood cultures thus far here with no growth - gram staining suggests gram negative rods - will d/c with Levaquin 500mg x14 days - risk of tendon rupture discussed; no strenuous activity for 2 weeks - outpatient ENT follow-up in one week 02/18 - initial gram stain as outpatient growing gram negative rods - final culture is pending - currently on Clinda and Aztreonam - white count improving - await final cultures and adjust abx. accordingly - NPO after midnight in case the abscess needs to be drained
[2018-02-19] MEDS ORDERED: LEVO-459 PO (13:47)
[2018-02-19] MEDS ORDERED: LCTX PO (13:47)
--- NOTE | 2018-02-19 13:50 | Discharge Instructions ---
Discharge Instructions Date of Service Feb 19, 2018. Admission Reason for Admission: Cervical Adenitis Discharge Discharge Diagnosis / Problem: Cervical Adenitis; swelling of lymph node Discharge Goals Goal(s): Decrease discomfort, Improve function, Diagnostic testing, Therapeutic intervention Activity Recommendations Activity Limitations: resume your previous activity . Instructions / Follow-Up Instructions / Follow-Up Please follow-up with Dr. Van, ENT, in one week * You will be on Levaquin (antibiotic) for 14 days; there is a slight chance of tendon rupture with this medication, it's better not to perform strenuous activity while on this * You can take over the counter lactobacillus tablets to prevent any upset stomach; this is not necessary if the antibiotic does not bother your stomach ( diarrhea, etc.) Current Hospital Diet Patient's current hospital diet: Regular Diet Discharge Diet Recommended Diet: Regular Diet Pending Studies Studies pending at discharge: no Medical Emergencies . Who to Call and When: Medical Emergencies: If at any time you feel your situation is an emergency, please call 911 immediately. . Non-Emergent Contact Non-Emergency issues call your: Primary Care Provider Call Non-Emergent contact if: temperature is above 101.5, your pain is not controlled, your pain is worsening, your pain is unusual for you, your pain is concerning you . . "Provider Documentation" section prepared by Mis Marquez. .
--- NOTE | 2018-02-19 13:52 | Discharge Summary ---
Discharge Summary Date of Service Feb 19, 2018. Discharge Summary Admission Date: Feb 17, 2018 at 14:39 Discharge Date: Feb 19, 2018 Discharge Disposition: Home Principal Diagnosis: Cervical Adenitis Medication Reconciliation New Medications: Lactobacillus Acidophilus (Floranex) 1 Tab Tab 1 TAB PO DAILY for 14 Days, #14 TABS Levofloxacin (Levaquin) 500 Mg Tab 500 MG PO DAILY for 14 Days, #14 TABS Continued Medications: Ibuprofen Tab (Advil) 200 Mg Tab 200 MG PO TID PRN for Pain or Fever, TAB Naproxen (Aleve) 220 Mg Tab 220 MG PO BID PRN for Pain or Fever, TAB Discontinued Medications: Prednisone (Prednisone Tab) 20 Mg Tab 0 PO DAILY, #7 TAB 2 TABS DAILY FOR 2 DAYS, THEN 1 TAB DAILY FOR 2 DAYS, THEN 1/2 TAB DAILY FOR 2 DAYS. Admission Information HPI (per Admitting provider): Patient is a 22 yr male no significant past medical history was a direct admit on referral from his ENT surgeon for neck abscess and need for IV antibiotics. Patient reports he was diagnosed to have tonsillitis 10 days ago when he was prescribed Augmentin and Prednisone course for 10 days which he completed. Patient was revaluated by today at his office and was found to have persistent right sided cervical adenopathy associated with right sided neck abscess. Patient underwent US guided drainage of the abscess and was sent to [facility] for further management. He reports neck pain 4-5/10, sharp, non radiating which increases with movement. Denies any history of dysphagia, odynophagia, fever, chills, nausea, chest pain, SOB, dizziness, abd pain or any other relevant history. Physical Exam (per Admitting): General Appearance: WD/WN, no apparent distress Head: normocephalic, atraumatic Eyes: normal inspection, PERRL, EOMI, sclerae normal ENT: normal ENT inspection, hearing grossly normal Neck: supple, + pertinent finding (Right neck swelling, tender, no erythema , Drainage site in bandage) Respiratory/Chest: chest non-tender, lungs clear, normal breath sounds, no respiratory distress, no accessory muscle use Cardiovascular: regular rate, rhythm, no edema, no murmur Abdomen/GI: normal bowel sounds, non tender, soft Back: normal inspection Extremities/Musculoskelatal: normal inspection, no pedal edema Neurologic/Psych: [employer] II-X[employer] nml as tested, no motor/sensory deficits, alert , normal mood/affect, oriented x 3 Skin: normal color, warm/dry Lymphatic: + cervical node abnormality Hospital Course This is a 22 year old male with recent history of tonsillitis - found to have cervical adenopathy and abscess R Peritonsillar Abscess and Reactive Lymphadenopathy 02/19 - outpatient cultures with no growth - blood cultures thus far here with no growth - gram staining suggests gram negative rods - will d/c with Levaquin 500mg x14 days - risk of tendon rupture discussed; no strenuous activity for 2 weeks - outpatient ENT follow-up in one week 02/18 - initial gram stain as outpatient growing gram negative rods - final culture is pending - currently on Clinda and Aztreonam - white count improving - await final cultures and adjust abx. accordingly - NPO after midnight in case the abscess needs to be drained Total time spent on discharge = 20 minutes This includes examination of the patient, discharge planning, medication reconciliation, and communication with other providers. Discharge Instructions Please follow-up with Dr. Van, ENT, in one week * You will be on Levaquin (antibiotic) for 14 days; there is a slight chance of tendon rupture with this medication, it's better not to perform strenuous activity while on this * You can take over the counter lactobacillus tablets to prevent any upset stomach; this is not necessary if the antibiotic does not bother your stomach ( diarrhea, etc.)
== END 2018-02-19 14:14 | disposition home or self-care (01) ==
LOC: C.MS4W 14:39
PROVIDERS: ADMIT Internal Medicine; ATTEND Internal Medicine
DX: I88.9 Nonspecific lymphadenitis, unspecified (principal); J36 Peritonsillar abscess; D72.829 Elevated white blood cell count, unspecified